=== PATIENT | male | born 1960 | race Caucasian/White ===

== ENCOUNTER → 2021-01-07 | Outpatient (CLI) | payer MEDICARE, OTHER ==
--- NOTE | 2021-01-07 11:32 | KCIC ---
XR CHEST 2V History: Reason: left side chest pain xs 2 weeks, smoker 40 yrs / Spl. Instructions: / History: Comparison: None. Findings: No consolidation or pleural effusion. Normal heart size. No pneumothorax. Postop changes left proxima l humerus. Impression: 1. No acute cardiopulmonary process. Electronically signed by: Gareth Paniagua DO (01/07/2021 11:30 AM) [id number]
== END ==
LOC: KCIC 11:06
PROVIDERS: ATTEND Internal Medicine
DX: R07.9 Chest pain, unspecified (principal)
CPT/HCPCS: 71046